=== PATIENT | female | born 1975 | race Caucasian/White ===

== ENCOUNTER → 2020-04-18 10:07 | Outpatient (CLI) | payer BC, SELFPAY ==
--- NOTE | ~2020-04-18 | MM_ITS ---
EXAMINATION: MM screening yany BI w best HISTORY: Screening mammogram TECHNIQUE: Craniocaudal and mediolateral oblique 3-D tomosynthesis images were obtained and synthetic 2-D images were generated. CAD analysis was submitted and interpreted. COMPARISON: 03/13/2019 bilateral digital screening mammogram 09/01/2016 bilateral diagnostic digital mammogram and complete bilateral breast ultrasound 08/16/2016 bilateral digital screening mammogram BREAST PARENCHYMAL COMPOSITION: The breasts are heterogeneously dense, which may obscure small masses . FINDINGS: There is no evidence of suspicious mass, calcification, or architectural distortion to sugg est malignancy in either breast. There has been no suspicious interval change. IMPRESSION: 1. No mammographic evidence of malignancy. 2. Recommend routine screening mammography in one year. BI-RADS Category 1: Negative Reviewed, dictated and finalized at location A. ING ENFORCER
== END ==
PROVIDERS: Visit Provider Obstetrics & Gynecology
DX: Z12.31 Encounter for screening mammogram for malignant neoplasm of breast (principal)
CPT/HCPCS: 77063; 77067

== ENCOUNTER → 2020-05-20 09:18 | Outpatient (CLI) | payer BC, SELFPAY ==
--- NOTE | ~2020-05-20 | US_ITS ---
EXAMINATION: US pelvic complete w TV EXAM DATE: 05/20/2020 10:22 INDICATION: Pelvic pain, dysmenorrhea. TECHNIQUE: Pelvic transabdominal and transvaginal sonogram was performed. There are multiple graysca le and Doppler images available for interpretation. There is no prior study for comparison. FINDINGS: Uterus measures 8.8 x 6.1 x 6.7 cm, is retroverted and morphologically normal. Endometria l stripe measures 11 mm, within normal limits. There is no free pelvic fluid. Right adnexa: The ovary measures 2.6 x 2.1 x 3.2 cm and is morphologically normal. Ovarian vascular f low confirmed. Left adnexa: The ovary measures 3.5 x 2.0 x 2.7 cm and is morphologically normal. Ovarian vascular fl ow confirmed. IMPRESSION: 1. Unremarkable pelvic ultrasound exam. Reviewed, dictated and finalized at location B. C COPYIST
== END ==
PROVIDERS: Visit Provider Obstetrics & Gynecology
DX: R10.2 Pelvic and perineal pain (principal); N94.6 Dysmenorrhea, unspecified
CPT/HCPCS: 76830; 76856

== ENCOUNTER → 2021-06-17 11:18 | Outpatient (CLI) | payer BC, SELFPAY ==
--- NOTE | ~2021-06-17 | MM_ITS ---
EXAMINATION: MM screening yany BI w best HISTORY: Screening mammogram TECHNIQUE: Craniocaudal and mediolateral oblique 3-D tomosynthesis images were obtained and synthetic 2-D images were generated. CAD analysis was submitted and interpreted. COMPARISON: 04/18/2020, 03/13/2019 bilateral screening mammogram examinations 09/01/2016 bilateral diagnostic digital mammogram and complete bilateral breast ultrasound examination 08/16/2016 bilateral screening mammogram BREAST PARENCHYMAL COMPOSITION: The breasts are heterogeneously dense, which may obscure small masses . FINDINGS: There is no evidence of suspicious mass, calcification, or architectural distortion to sugg est malignancy in either breast. There has been no suspicious interval change. IMPRESSION: 1. No mammographic evidence of malignancy. 2. Recommend routine screening mammography in one year. BI-RADS Category 1: Negative Reviewed, dictated and finalized at location A.
== END ==
PROVIDERS: PCP Family Medicine; Visit Provider Obstetrics & Gynecology
DX: Z12.31 Encounter for screening mammogram for malignant neoplasm of breast (principal)
CPT/HCPCS: 77063; 77067

== ENCOUNTER → 2022-06-26 08:10 | Outpatient (CLI) | payer BC, SELFPAY ==
--- NOTE | ~2022-06-26 | MM_ITS ---
EXAMINATION: MM screening yany BI w best HISTORY: Screening mammogram TECHNIQUE: Craniocaudal and mediolateral oblique 3-D tomosynthesis images were obtained and synthetic 2-D images were generated. CAD analysis was submitted and interpreted. COMPARISON: 06/17/2021, 04/18/2020, 03/13/2019 bilateral screening mammogram examinations BREAST PARENCHYMAL COMPOSITION: The breasts are heterogeneously dense, which may obscure small masses . FINDINGS: There is no evidence of suspicious mass, calcification, or architectural distortion to sugg est malignancy in either breast. There has been no suspicious interval change. IMPRESSION: 1. No mammographic evidence of malignancy. 2. Recommend routine screening mammography in one year. BI-RADS Category 1: Negative Reviewed, dictated and finalized at location A.
== END ==
PROVIDERS: PCP Obstetrics & Gynecology; Visit Provider Obstetrics & Gynecology
DX: Z12.31 Encounter for screening mammogram for malignant neoplasm of breast (principal)
CPT/HCPCS: 77063; 77067

== ENCOUNTER → 2023-02-03 09:53 | Outpatient (CLI) | payer BC, SELFPAY ==
--- NOTE | ~2023-02-03 | US_ITS ---
Abdominal Sonogram: Real-time sonographic imaging of the abdomen was performed. Clinical History: Abdominal pain Findings: The liver appears normal with no evidence of mass lesion or bile duct dilatation. Main por ernestine vein demonstrates normal direction of flow. The spleen is normal in size without evidence of foca l lesion. The gallbladder is well distended, and and contains echogenic gallstones. No gallbladder w all thickening evident. The common bile duct measures 5 mm. The visualized pancreas, aorta, and IVC are unremarkable. The right kidney measures 8.8 cm in length and the left kidney measures 11.8 cm. There is no hydronephrosis or renal calculus. Impression: Cholelithiasis. Right kidney measures significantly shorter than the left, possibly due to limitations in patient pos itioning/visualization. Reviewed, dictated and finalized at [facility]. IER PACKER Impression: Cholelithiasis. Right kidney measures significantly shorter than the left, possibly due to limi tations in patient positioning/visualization.
== END ==
PROVIDERS: PCP Nurse Practitioner; Visit Provider Nurse Practitioner
DX: R10.9 Unspecified abdominal pain (principal)
CPT/HCPCS: 76700

== ENCOUNTER 2023-02-28 15:12 | Outpatient (CLI) | payer BC, SELFPAY ==
[2023-02-28 11:23] LABS: Hematocrit 37.7 % (37.0-47.0); Hemoglobin 12.4 g/dL (12.0-15.0); Mean Corpuscular HGB Conc 32.9 g/dl (32-36); Mean Corpuscular Hemoglobin 28.5 pg (26-34); Mean Corpuscular Volume 86.7 fl (80-100); Mean Platelet Volume 10.3 fl (7.4-10.4); Platelet Count Result 298 k/mm3 (150-375); Red Blood Count 4.35 M/mm3 (4.2-5.4); Red Cell Distribution Width 13.4 % (11.5-14.5); White Blood Count 7.7 K/mm3 (4.5-10.0)
[2023-02-28 11:45] LABS: Alanine Aminotransferase 45 U/L (6-35); Alkaline Phosphatase 102 U/L (38-126); Anion Gap 9 mmol/L (8-16); Aspartate Amino Transferase 30 U/L (14-36); Bilirubin,Total 1.1 mg/dL (0.2-1.3); Blood Urea Nitrogen 10 mg/dL (7-17); CRP 0.8 mg/dL (<1.0); Calcium 8.8 mg/dL (8.4-10.2); Carbon Dioxide 23 mmol/L (22-30); Chloride 106 mmol/L (98-107); Estimated Glomerular Filt Rate 60; Glucose 98 mg/dL (65-110); Lipase 35 U/L (23-300); Potassium 3.6 mmol/L (3.4-5.0); Sodium 138 mmol/L (137-145)
[2023-02-28 11:54] LABS: Erythrocyte Sedimentation Rate 39 mm/hr (0-20)
[2023-02-28 16:16] LABS: Toxigenic C. Diff NEGATIVE (NEGATIVE)
[2023-03-04 02:06] LABS: H pylori Ag Stool Not Detected (Not Detected)
== END 2023-02-28 15:13 | disposition home or self-care (01) ==
PROVIDERS: PCP Nurse Practitioner; Visit Provider Nurse Practitioner Family
DX: R10.11 Right upper quadrant pain (principal); R11.0 Nausea; R19.7 Diarrhea, unspecified
CPT/HCPCS: 36415; 80053; 83690; 85027; 85652; 86140; 87045; 87177; 87209; 87338; 87427; 87449; 87493

== ENCOUNTER 2023-03-10 08:37 | Outpatient (CLI) | payer BC, SELFPAY ==
--- NOTE | ~2023-03-10 | NM_ITS ---
EXAMINATION: NM hepatobiliary wo pharm DATE: 03/10/2023 11:15 INDICATION: Unspecified abdominal pain. COMPARISON: Ultrasound 02/03/2023 TECHNIQUE: 4.7 mCi Tc-99m mebrofenin (Choletec) was administered intravenously. Scintigraphic images of the abdomen were obtained for one hour. Then, the patient drank 8 oz Ensure, and imaging was cont inued for 60 minutes. FINDINGS: There is normal clearance of radiotracer from the blood pool. There is homogeneous tracer u ptake by the liver. Activity progresses to the bowel and gallbladder. Gallbladder ejection fraction (GBEF) was 53%. Note that with this technique, normal GBEF >= 33%. IMPRESSION: 1. Normal hepatobiliary scintigraphy. Reviewed, dictated and finalized at location A. [employer]
== END 2023-03-10 08:38 | disposition home or self-care (01) ==
PROVIDERS: PCP Family Medicine; Visit Provider Nurse Practitioner Family
DX: R10.9 Unspecified abdominal pain (principal); R11.0 Nausea
CPT/HCPCS: 78226; A9537

== ENCOUNTER 2023-03-16 01:55 | Day surgery (SDC) | payer BC, SELFPAY ==
[2023-03-02 10:15] VITALS: BMI 37.6
--- NOTE | 2023-03-14 09:29 | SUR.PREOP ---
Patient called regarding upcoming procedure. Reviewed preop instructions, appointment times, and procedure prep.
[2023-03-16 08:40] VITALS: BP 147/92; PULSE 110; RESP 18; TEMP 36.3; O2SAT 100
[2023-03-16] MEDS: LACTATED RINGERS 1,000 ML 150 ML IV CONT (08:57)
--- NOTE | 2023-03-16 09:16 | WPDANESEPPF ---
Anes - Initial Pre Proc Eval Procedure: Operation Date: 03/16/23 10:30 Proposed Procedures p Esophagogastroduodenoscopy & Colonoscopy - Terrence Givens MD Date/Time: 03/16/23 09:16 Surgeon: Terrence Givens MD Pre Op Diagnosis: Abdominal pain,diarrhea,nausea Patient Data Age: 47 Gender: F Height: 1.7 m Weight: 106.3 kg Last Vital Signs Temp 36.3 C L 03/16/23 08:40 Pulse 110 H 03/16/23 08:40 Resp 18 03/16/23 08:40 BP 147/92 H 03/16/23 08:40 Pulse Ox 100 03/16/23 08:40 O2 Del Method Room Air 03/16/23 08:40 Allergies Allergy/AdvReac Type Severity Reaction Status Date / Time Penicillins Allergy Mild RASH Verified 03/16/23 08:40 Home Medications Medication Instructions Recorded Confirmed Type levothyroxine 125 mcg capsule 125 mcg PO DAILY 09/21/22 03/02/23 History liothyronine 5 mcg tablet 5 mcg PO DAILY 09/21/22 03/02/23 History norgestrel 0.3 mg-ethinyl 1 tablet PO DAILY 03/02/23 03/02/23 History estradiol 30 mcg tablet (Ariana (28)) Patient hx anesthesia problems: none Family hx anesthesia problems: none Results Review: All pre-operative results and documents have been reviewed as part of the pre-operative evaluation. [facility] Past Medical History Medical History Cholelithiasis Nausea Surgical History Surgical History H/O lumpectomy Status post left breast lumpectomy 1998 Family History Family History Grandparent Diabetes mellitus Family history of cardiovascular disease Family history of malignant neoplasm Family history of sudden Mother Family history of hypercholesterolemia Sibling Family history of sudden Social History Social History Smoking status: Never smoker Alcohol intake: current Substance use: never Substance use type: does not use Lack of Transportation: No Lack of Food: Never True Current Housing: I Have Housing Concerned About Future Housing: No Difficulty Paying Gas/Electric Bills: No Difficulty Paying for Meds: No Currently Unemployed: No Education: Bachelor's Degree Difficulty w/ Childcare or Family Care: No Living arrangements: with family Occupation/Education: occupation Gender identity (if verbalized by the patient): Female Spiritual care concerns: No Agree to blood products: Yes Anes - Eval Final PreProcedure Day of Procedure 03/16/23 09:16 Patient weight: obese Heart: regular rate and rhythm Lungs: clear to auscultation Airway: Mallampati scale class II Neurological: alert and oriented Last oral intake: >/= 8 hours ASA classification: II Emergent: no Anesthetic plan: proceed Anesthesia type and monitoring: general GIVS and standard monitoring Results Review: All pre-operative results and documents have been reviewed as part of the pre-operative evaluation. Informed Consent: The patient's anesthetic plan and its attendant risks and benefits were discussed with the patient/family/POA. Questions were solicited and answers provided to the satisfaction of the patient/family/POA.
--- NOTE | 2023-03-16 09:24 | WPDHPUPDATE1 ---
History and Physical Update Update Date/Time: 03/16/23 09:24 History and Physical has been reviewed, including an updated exam of the patient. There are NO changes in the patient's condition. Risks, benefits, and alternatives have been discussed and questions answered. Patient agrees to proceed with procedure.
--- NOTE | 2023-03-16 09:38 | SUR.OPER ---
EGD: Start 927, End 931 Colonoscopy: Start 935, End 945
[2023-03-16 09:50] VITALS: BP 101/53; PULSE 97; RESP 17; O2SAT 97
[2023-03-16 10:00] VITALS: BP 118/77; PULSE 84; RESP 18; O2SAT 98
[2023-03-16 10:10] VITALS: BP 140/83; PULSE 84; RESP 18; O2SAT 98
== END 2023-03-16 10:19 | disposition home or self-care (01) ==
PROVIDERS: PCP Family Medicine; Visit Provider Internal Medicine Gastroenterology
PROC: 0DJ08ZZ Inspection of Upper Intestinal Tract, Via Natural or Artificial Opening Endoscopic (ICD-10-PCS; CPT 43235; principal; 2023-03-16 10:30)
DX: Z12.11 Encounter for screening for malignant neoplasm of colon (principal); K29.50 Unspecified chronic gastritis without bleeding; R19.7 Diarrhea, unspecified; E66.9 Obesity, unspecified; Z68.36 Body mass index [BMI] 36.0-36.9, adult
CPT/HCPCS: 45380; 43239; 88305; J2405; J2704; J3010; J7120

== ENCOUNTER 2023-08-10 12:26 | Outpatient (CLI) | payer BC, SELFPAY ==
--- NOTE | ~2023-08-10 | MM_ITS ---
EXAMINATION: MM screening yany BI w best HISTORY: Screening mammogram TECHNIQUE: Craniocaudal and mediolateral oblique 3-D tomosynthesis images were obtained and synthetic 2-D images were generated. CAD analysis was submitted and interpreted. COMPARISON: June 26, 2022, June 17, 2021 bilateral screening mammogram examinations BREAST PARENCHYMAL COMPOSITION: The breasts are heterogeneously dense, which may obscure small masses . FINDINGS: There is no evidence of suspicious mass, calcification, or architectural distortion to sugg est malignancy in either breast. There has been no suspicious interval change. IMPRESSION: 1. No mammographic evidence of malignancy. 2. Recommend routine screening mammography in one year. BI-RADS Category 1: Negative Reviewed, dictated and finalized at location B.
== END 2023-08-10 12:27 ==
PROVIDERS: PCP Family Medicine; Visit Provider Obstetrics & Gynecology
DX: Z12.31 Encounter for screening mammogram for malignant neoplasm of breast (principal)
CPT/HCPCS: 77063; 77067

== ENCOUNTER 2023-12-23 08:02 | Outpatient (CLI) | payer BC, SELFPAY ==
[2023-12-23 08:45] LABS: Basophils Percent Auto 0.5 % (0.2-1.2); Eosinophils Absolute Auto 0.2 K/mm3 (0-0.3); Eosinophils Percent Auto 2.8 % (0-4.4); Hematocrit 41.2 % (37.0-47.0); Hemoglobin 13.2 g/dL (12.0-15.0); Immature Granulocyte Absolute 0.03 K/mm3 (0.00-0.031); Immature Granulocyte Percent A 0.5 % (0-0.5); Lymphocytes Absolute Auto 1.71 K/mm3 (0.9-3.2); Lymphocytes Percent Auto 26.6 % (18.3-44.2); Mean Corpuscular Hemoglobin 28.4 pg (26-34); Mean Corpuscular Volume 88.8 fl (80-100); Mean Platelet Volume 10.2 fl (7.4-10.4); Monocytes Absolute Auto 0.4 K/mm3 (0.1-0.6); Monocytes Percent Auto 6.8 % (2.6-8.5); Neutrophils Absolute Auto 4.1 K/mm3 (1.3-6.7); Neutrophils Percent Auto 62.8 % (45.5-73.1); Platelet Count Result 307 k/mm3 (150-375); Red Blood Count 4.64 M/mm3 (4.2-5.4); Red Cell Distribution Width 13.9 % (11.5-14.5); White Blood Count 6.4 K/mm3 (4.5-10.0)
[2023-12-23 09:05] LABS: Alanine Aminotransferase 30 U/L (6-35); Alkaline Phosphatase 78 U/L (38-126); Amylase 67 U/L (30-110); Aspartate Amino Transferase 25 U/L (14-36); Bilirubin,Total 0.9 mg/dL (0.2-1.3); Lipase 35 U/L (23-300)
== END 2023-12-23 08:03 | disposition home or self-care (01) ==
LOC: ANHSURGERY 08:06
PROVIDERS: PCP Nurse Practitioner; Visit Provider Surgery
DX: Z01.818 Encounter for other preprocedural examination (principal); K80.10 Calculus of gallbladder with chronic cholecystitis without obstruction
CPT/HCPCS: 36415; 80076; 82150; 83690; 85025; 86850; 86900; 86901

== ENCOUNTER 2023-12-29 03:05 | Day surgery (SDC) | payer BC, SELFPAY ==
[2023-12-21 13:52] VITALS: BMI 39.2
--- NOTE | 2023-12-21 14:04 | PC.NURSE ---
Report to the Outpatient Waiting Room, entrance under the green pavilion located off [facility], at time __1130AM on date __ 12/29/23 . Planned Procedure Time: 1:30PM .? Time changes happen often and if your time is changed the preop area will call you the afternoon before. - You and your visitor will be asked to self-screen and do not enter if you have any COVID symptoms. Please call surgeon if you need to reschedule. - A mask is optional within the hospital at this time. Patients may have clear liquids (water, carbonated beverages, clear teas, apple juice) until 3 hours prior to surgery (10:30AM) with a maximum of 20 ounces. - No food from midnight until time of surgery and no smoking Take only the following medications with a SIP of water on the morning of surgery: __LEVOTHYROXINE, LIOTHYRONINE DO NOT STOP ANY OF YOUR OTHER PRESCRIPTION MEDICATIONS PRIOR TO SURGERY EXCEPT THE FOLLOWING Medications to discontinue per physician N/A Date to take last dose N/A Please no make-up, nail syrian, hairspray, perfume, deodorant, or body powder the day of surgery.? No jewelry (including any body piercings) or valuables the day of surgery, leave them at home.? Please take a shower or bath the night before, or the morning of, surgery with an antibacterial soap.? Wear comfortable, loose fitting clothing.? - Jewelry must be removed prior to entering the operating room.? Rings and piercings that are not removed may be cut off. - The hospital will not accept responsibility for valuables.? - Please leave all valuables, including medications, at home the day of surgery. If you are going home after surgery, a licensed line haul driver must drive you home.? - NO public transportation without another adult if you receive anesthesia. - We recommend that an adult stay with you for 24 hours following discharge. - We also recommend that you do not drive, make important decision, drink alcoholic beverages, or take any drugs that were not prescribed by your health care provider for at least 24 hours after your discharge time. Follow any additional instructions given to you from your surgeon. Telephone instructions given to __STEVEN and asked if any additional questions and then verbalized understanding. Patient advised to call surgeon office or pre surgery nurse liaison [phone] if any additional questions.
[2023-12-29] VITALS (18 sets, daily range): BP systolic 137–176; BP diastolic 84–110; PULSE 71–109; RESP 12–22; TEMP 36.3–37.1; O2SAT 97–100
--- NOTE | 2023-12-29 11:49 | WPDHPUPDATE1 ---
History and Physical Update Update Date/Time: 12/29/23 11:49 History and Physical has been reviewed, including an updated exam of the patient. There are NO changes in the patient's condition. Risks, benefits, and alternatives have been discussed and questions answered. Patient agrees to proceed with procedure.
[2023-12-29] MEDS: ACETAMINOPHEN 500 MG TABLET 1000 MG PO (12:25)
[2023-12-29] MEDS: LACTATED RINGERS 1,000 ML 30 ML IV CONT ×2 (12:30→15:19)
[2023-12-29] MEDS: KETOROLAC 15 MG/ML VIAL (*BKC) IV PUSH (12:34)
--- NOTE | 2023-12-29 12:39 | P.PNAN_ITS ---
Anes - Initial Pre Proc Eval Procedure: Operation Date: 12/29/23 13:30 Proposed Procedures p Laparoscopic Cholecystectomy - Harinder Cobos MD Date/Time: 12/29/23 12:39 Surgeon: Harinder Cobos MD Pre Op Diagnosis: chronic cholecystitis with stones Patient Data Age: 48 Gender: F Height: 1.7 m Weight: 113.6 kg Allergies Allergy/AdvReac Type Severity Reaction Status Date / Time Penicillins Allergy Mild RASH Verified 12/29/23 12:19 Home Medications Medication Instructions Recorded Confirmed Type levothyroxine 125 mcg capsule 125 mcg PO DAILY 09/21/22 12/29/23 History liothyronine 5 mcg tablet 5 mcg PO DAILY 09/21/22 12/29/23 History norgestrel 0.3 mg-ethinyl 1 tablet PO DAILY 03/02/23 12/29/23 History estradiol 30 mcg tablet (Ariana (28)) Patient hx anesthesia problems: none Family hx anesthesia problems: none Results Review: All pre-operative results and documents have been reviewed as part of the pre- operative evaluation. [facility] Past Medical History Medical History Cholelithiasis Nausea Surgical History Surgical History H/O lumpectomy Status post left breast lumpectomy 1998 Family History Family History Grandparent Diabetes mellitus Family history of cardiovascular disease Family history of malignant neoplasm Family history of sudden Mother Family history of hypercholesterolemia Sibling Family history of sudden Social History Social History Smoking status: Never smoker Alcohol intake: never Substance use: never Substance use type: does not use Lack of Transportation: No Lack of Food: Never True Current Housing: I Have Housing Concerned About Future Housing: No Difficulty Paying Gas/Electric Bills: No Difficulty Paying for Meds: No Currently Unemployed: No Education: Bachelor's Degree Difficulty w/ Childcare or Family Care: No Living arrangements: with family Occupation/Education: occupation Gender identity (if verbalized by the patient): Female Spiritual care concerns: No Agree to blood products: Yes Anes - Eval Final PreProcedure Day of Procedure 12/29/23 12:39 Patient weight: obese Heart: regular rate and rhythm Lungs: clear to auscultation Airway: Mallampati scale class II Neurological: alert and oriented Last oral intake: >/= 8 hours ASA classification: II Emergent: no Anesthetic plan: proceed Anesthesia type and monitoring: general ETT and standard monitoring Results Review: All pre-operative results and documents have been reviewed as part of the pre- operative evaluation. Hypothyroidism. BMI 39. Informed Consent: The patient's anesthetic plan and its attendant risks and benefits were discussed with the patient/family/POA. Questions were solicited and answers provided to the satisfaction of the patient/family/POA.
[2023-12-29 12:54] LABS: BEDSIDEPREGUCG Negative (Negative)
[2023-12-29] MEDS: ceFAZolin 2 GM/D5W 50 ML 2 GM/50 ML BAG IVPB (13:47)
[2023-12-29] MEDS: BUPIVACAINE/EPINEPHRINE 0.5% 50 ML VIAL 30 ML INFILTRATE (14:09)
[2023-12-29] MEDS: fentaNYL CITRATE INJ (*CRX) 100 MCG/2 ML VIAL 25 MCG IV PUSH ×3 (15:24→15:58)
[2023-12-29] MEDS: LABETALOL HCL INJ 100 MG/20 ML VIAL IV PUSH ×2 (16:15→16:34)
--- NOTE | 2024-01-03 12:03 | P.OP_ITS ---
Procedure Note - Detailed Date of Procedure 12/29/23 Pre-op Diagnosis chronic cholecystitis with stones Post-op Diagnosis Same Procedure Performed Laparoscopic cholecystectomy Surgeon Harinder Cobos MD Anesthesia General and Local Indications Patient has developed right upper quadrant abdominal pain after fatty meals that radiates around to her back. She has a strong family history of gallbladder disease. Her imaging did show gallstones. She is taken to surgery now for laparoscopic cholecystectomy. Findings Acute and chronic inflammation, thickened gallbladder wall, very thick bile, no biliary ductal dilatation, no liver abnormalities. Description of Procedure Patient was taken to surgery and induced into general anesthesia. The abdomen is prepped draped. Trocars were placed in the usual fashion using Bucky Box optical trocars and a 5 mm camera. Prior to the placement of any trocars, the varies needle was used in the epigastric position to insufflate CO2 and distend the abdomen with gas. Once the trocars were in place, adhesions were taken down from the gallbladder. Laparoscopic aspirator was used and attempts were made to decompress the gallbladder. The bile was very thick and not very much was able to be suctioned from the lumen. A Vicryl endoloop was then used to close the cholecystotomy. The gallbladder was then retracted anterosuperiorly. Further dissection down to the infundibulum and triangle of Calot were then carried out. Traction was placed on the infundibulum and dissection was carried out in the triangle of Calot. The cystic duct and cystic artery were carefully dissected free. The gallbladder was dissected off the liver at its lower 3rd. Critical view was achieved. We then securely clipped and divided the cystic duct and cystic artery. The gallbladder was then retracted and with careful dissection, it was dissected free from the remaining attachments to the liver. The fundus of the gallbladder was intrahepatic but was able to be dissected free with minimal bleeding or entry into the liver. Once the gallbladder was completely freed, it was placed in an Endo-Catch bag and retrieved through the 10 11 epigastric trocar site. The trocar site had to be slightly enlarged to accommodate the gallbladder. Once the gallbladder was removed from the abdomen, the 10 11 trocar was then replaced. We elevated the liver and inspected the gallbladder fossa and right upper quadrant. Irrigation and suctioning were carried out repeatedly. Small amounts of additional cautery were used. Eventually all looked quite good with no evidence of bleeding or bile leakage. We then evacuated CO2 removed the trocar sleeves. A Nolan was used and we closed is the fact fascia at the epigastric trocar site with an 0 Vicryl. All skin wounds were closed with subcuticular 4-0 Monocryl skin suture. Sponge and needle counts were correct x2. Estimated Blood Loss -20 Drains No Packing No Pathology Yes (Gallbladder) Complications None Condition Stable Disposition PACU [facility] Billing Surgery - Charge Forward: Surgery Billing (Laparoscopic cholecystectomy)
== END 2023-12-29 17:49 | disposition home or self-care (01) ==
PROVIDERS: PCP Nurse Practitioner; Visit Provider Surgery
PROC: 0FT44ZZ Resection of Gallbladder, Percutaneous Endoscopic Approach (ICD-10-PCS; CPT 47562; principal; 2023-12-29 13:30)
DX: K80.00 Calculus of gallbladder with acute cholecystitis without obstruction (principal); E66.9 Obesity, unspecified; Z68.38 Body mass index [BMI] 38.0-38.9, adult
CPT/HCPCS: 47562; 88304; A9270; J0690; J1100; J1885; J2250; J2405; J2704; J3010; J7120

== ENCOUNTER 2024-01-16 11:34 | Outpatient (CLI) | payer BC, SELFPAY ==
[2024-01-16 12:20] LABS: Hematocrit 40.7 % (37.0-47.0); Hemoglobin 13.3 g/dL (12.0-15.0); Mean Corpuscular HGB Conc 32.7 g/dl (32-36); Mean Corpuscular Hemoglobin 29.1 pg (26-34); Mean Corpuscular Volume 89.1 fl (80-100); Mean Platelet Volume 10.6 fl (7.4-10.4); Platelet Count Result 334 k/mm3 (150-375); Red Blood Count 4.57 M/mm3 (4.2-5.4); Red Cell Distribution Width 13.6 % (11.5-14.5); White Blood Count 7.5 K/mm3 (4.5-10.0)
[2024-01-16 12:51] LABS: LDL Cholesterol Direct 189 mg/dL
[2024-01-16 13:21] LABS: Alanine Aminotransferase 36 U/L (6-35); Alkaline Phosphatase 106 U/L (38-126); Anion Gap 6 mmol/L (4-12); Aspartate Amino Transferase 22 U/L (14-36); Bilirubin,Total 1.3 mg/dL (0.2-1.3); Blood Urea Nitrogen 11 mg/dL (7-17); Calcium 8.9 mg/dL (8.4-10.2); Carbon Dioxide 27 mmol/L (22-30); Chloride 106 mmol/L (98-107); Cholesterol 273 mg/dL (0-200); Estimated Glomerular Filt Rate 53; Glucose 96 mg/dL (65-110); HDL Direct 41 mg/dL; Potassium 3.8 mmol/L (3.4-5.0); Sodium 139 mmol/L (137-145); Triglycerides 160 mg/dL (<150)
[2024-01-16 13:24] LABS: Free T4 Free Thyroxine 0.96 ng/mL (0.78-2.19); Vitamin D 25 Hydroxy 16.4 ng/mL
== END 2024-01-16 11:35 | disposition home or self-care (01) ==
LOC: ANHLAB 11:35
PROVIDERS: PCP Nurse Practitioner; Visit Provider Nurse Practitioner
DX: Z00.00 Encounter for general adult medical examination without abnormal findings (principal); E03.8 Other specified hypothyroidism; E55.9 Vitamin D deficiency, unspecified
CPT/HCPCS: 36415; 80053; 80061; 82306; 84439; 84443; 85027

== ENCOUNTER 2024-07-12 13:29 | Outpatient (CLI) | payer BC, SELFPAY ==
--- NOTE | ~2024-07-12 | XR_ITS ---
XR shoulder RT min 2V Ordering provider: Debra Whittaker [employer]PECT[employer] History: . M25.511 - Pain in right shoulder . Comparison: None. FINDINGS: BONES: No acute fracture or dislocation. JOINT SPACES: The acromioclavicular joint shows mild osteoarthritic changes. The glenohumeral joint i s normal. SOFT TISSUES: Normal. IMPRESSION: No acute osseous abnormality right shoulder. Reviewed, dictated and finalized at location A.
== END 2024-07-12 13:30 | disposition home or self-care (01) ==
LOC: GOSHIMG 13:30
PROVIDERS: PCP Nurse Practitioner; Visit Provider Nurse Practitioner
DX: M25.511 Pain in right shoulder (principal)
CPT/HCPCS: 73030